=== PATIENT | female | born 1990 | race Caucasian/White ===

== ENCOUNTER 2020-11-23 06:00 | Inpatient (IN) | payer OTHER ==
[2020-11-23] MEDS ORDERED: LIDOCAINE 0.5% (PF) 5 MG/ML (50 ML SDV) SQ PRN (07:01)
[2020-11-23] MEDS ORDERED: OXYTOCIN 10 UNIT/ML 1 ML VIAL IM PRN (07:01)
[2020-11-23] MEDS ORDERED: METHYLERGONOVINE 0.2 MG/ML 1 ML AMP IM PRN (07:01)
[2020-11-23] MEDS ORDERED: CARBOPROST TROMETHAMINE 250 MCG/ML 1 ML AMP IM PRN (07:01)
[2020-11-23] MEDS ORDERED: TERBUTALINE 1 MG/ML VIAL SQ PRN (07:01)
[2020-11-23 07:08] LABS: Basophils % (A) 0 %; Eosinophils # (A) 0.2 k/uL (0-0.7); Eosinophils % (A) 2 %; HCT 38.7 % (34.0-46.0); HGB 12.8 gm/dL (11.4-16.0); Lymphocytes # (A) 2.4 k/uL (1.0-4.8); Lymphocytes % (A) 17 %; MCH 29.7 pg (25.0-35.0); MCV 90.1 fL (80.0-100.0); Mean Platelet Volume 8.1; Monocytes # (A) 0.6 k/uL (0-1.0); Monocytes % (A) 4 %; Neutrophils % (A) 75 %; Platelet Count 337 k/uL (150-450); RDW 13.8 % (11.5-15.5); WBC 14.7 k/uL (3.8-10.6)
[2020-11-23] MEDS ORDERED: OXYTOCIN 30 UNITS/500 ML NS 30 UNIT in SALINE 1 500ML.BAG IV SCH ×2 (07:15→12:45)
[2020-11-23 07:21] LABS: Glucose,Whole Blood 102 mg/dL (75-99)
[2020-11-23] MEDS: LACTATED RINGERS 1,000 ML IV SCH ×2 (07:30→08:59)
--- NOTE | 2020-11-23 09:22 | P.HPOB ---
History of Present Illness H&P Date: 11/23/20 Chief Complaint: 39-0/7 weeks, elective induction The patient is a 30-year-old 3 para 2 scissors or 2 admitted at 39-0/7 weeks as established by 6 week ultrasound. She is admitted for elective induction of labor with all signs reassuring and a favorable cervix. Her has been complicated by gestational diabetes with reassuring weekly testing. She was also found to have a single umbilical artery at her 20 week anatomic ultrasound and has had normal growth throughout the as well as reassuring testing as noted above. Group B strep status is negative. Obstetrical history: 3 para 2 scissors or 2 with 2 term vaginal deliveries without complications. Current statistics are listed in history present illness. EDC of 11/30/2020 was established by 6 week ultrasound. Laboratory workup demonstrates a blood type of A+ with a negative antibody screen. Rubella status is immune. Remainder of laboratory workup was within normal limits. One hour Glucola was elevated and followed by an abnormal three-hour glucose tolerance test making the diagnosis of gestational diabetes. Sugar control has been excellent with diet alone. Group B strep status is negative. Gynecologic history: Unremarkable with no history of any infections to include STDs. Review of Systems Review of systems is confined to history of present illness. Past Medical History Past Medical History: No Reported History Additional Past Medical History / Comment(s): C/O of abd. pain History of Any Multi-Drug Resistant Organisms: MRSA Date of last positivie culture/infection: January MDRO Source:: L wrist Past Surgical History: Adenoidectomy, Tonsillectomy Additional Past Surgical History / Comment(s): Colposcopy Past Anesthesia/Blood Transfusion Reactions: No Reported Reaction Past Psychological History: No Psychological Hx Reported Smoking Status: Former smoker Past Alcohol Use History: None Reported Past Drug Use History: None Reported - Past Family History Mother Family Medical History: No Reported History Father Family Medical History: CVA/TIA Additional Family Medical History / Comment(s): AAA. Medications and Allergies Home Medications Medication Instructions Recorded Confirmed Type Pnv No.95/Ferrous Fum/Folic AC 1 tab PO DAILY 11/23/20 11/23/20 History [ Multivitamin Tablet] Allergies Allergy/AdvReac Type Severity Reaction Status Date / Time No Known Allergies Allergy Verified 11/23/20 06:53 Exam Intake and Output 11/22/20 11/23/20 11/23/20 22:59 06:59 14:59 Other: Weight 83.915 kg In general, this is a well-developed, well-nourished white female in no acute distress. Her heart has a regular rhythm and rate without murmur. Her lungs clear to auscultation bilaterally in all samuel. Her abdomen is nondistended, has normal active bowel sounds, soft, nontender, and without any palpable masses aside from uterine fundus. Her extremities are without any cyanosis, clubbing, or significant edema and are nontender to palpation bilaterally. Digital cervical examination demonstrates her cervix to be 2-37 m dilated, 80% effaced, the vertex in presentation at -2 station. Artificial rupture of membranes is carried out demonstrating clear fluid. Results Result Diagrams: 11/23/20 06:59 Abnormal Lab Results - Last 24 Hours (Table) 11/23/20 11/23/20 Range/Units 06:59 07:20 WBC 14.7 H (3.8-10.6) k/uL Neutrophils # 11.0 H (1.3-7.7) k/uL POC Glucose (mg/dL) 102 H (75-99) mg/dL Assessment and Plan (1) Term Current Visit: Yes Status: Acute Code(s): Z34.90 - ENCNTR FOR SUPRVSN OF NORMAL , UNSP, UNSP TRIMESTER SNOMED Code(s): 69333650 Plan: The patient has been admitted for elective Pitocin induction. The risks and, occasions elective induction have been discussed and she has understood and agreed to proceed. She will have close maternal and surveillance and expectant management will be practiced. Artificial rupture of membranes has been carried out. She has requested an epidural catheter for analgesia which is being placed at this time.
[2020-11-23] MEDS ORDERED: ROPIVACAINE 100 MG, fentaNYL (PF) 200 MCG in SODIUM CHLORIDE 0.9% 76 ML EPIDURAL ONE (09:29)
[2020-11-23 09:34] LABS: Glucose,Whole Blood 101 mg/dL (75-99)
[2020-11-23] MEDS ORDERED: HYDROcodone/APAP 5-325MG 1 EACH TAB PO PRN (12:43)
[2020-11-23] MEDS ORDERED: HYDROCORTISONE 2.5% RECTAL CREAM 30 GM TUBE RECTAL PRN (12:43)
[2020-11-23] MEDS ORDERED: BENZOCAINE/MENTHOL SPRAY 1 GM/SPRAY AEROSOL TOPICAL PRN (12:43)
[2020-11-23] MEDS ORDERED: HYDROcodone/APAP 7.5-325MG 1 EACH TAB PO PRN (12:43)
[2020-11-23] MEDS ORDERED: LANOLIN CREAM 5 GM TUBE TOPICAL PRN (12:43)
[2020-11-23] MEDS ORDERED: IBUPROFEN 600 MG TAB PO PRN (12:43)
[2020-11-23] MEDS ORDERED: SIMETHICONE 80 MG CHEWABLE PO PRN (12:43)
[2020-11-23] MEDS ORDERED: diphenhydrAMINE 50 MG/ML 1 ML VIAL IVP PRN ×2 (12:43)
[2020-11-23] MEDS ORDERED: ACETAMINOPHEN TAB 325 MG TAB PO PRN (12:43)
[2020-11-23] MEDS ORDERED: diphenhydrAMINE 25 MG CAP PO PRN (12:43)
[2020-11-23] MEDS ORDERED: diphenhydrAMINE 50 MG CAP PO PRN (12:43)
[2020-11-23] MEDS ORDERED: ZOLPIDEM 5 MG TAB PO PRN (12:43)
--- NOTE | 2020-11-23 12:48 | P.PROBDLV ---
Vaginal Delivery Note - . Vaginal Delivery Note: The patient is a 30-year-old 3 para 2 scissors or 2 admitted at 39-0/7 weeks by good dating parameters. She is admitted for elective induction of labor with all signs reassuring. Her pregnancies been complicated by findings of a single umbilical artery as well as gestational diabetes. testing was reassuring throughout. growth has also been regular and symmetrical. On labor and delivery, she had Pitocin started followed by artificial rupture of membranes demonstrating clear fluid. She later had an epidural catheter placed for analgesia. She made rapid progress through the active phase of labor to complete and then pushed to a normal spontaneous vaginal delivery of a viable 6 lbs. 3 oz. baby girl with Apgars of 9 at 1 minute and 9 at 5 minutes. The placenta was delivered spontaneously, intact, and grossly normal with a very large accessory lobe of the placenta. The cord itself was noted she inserted relatively centrally on the main body of the placenta itself and the cord was also noted to be otherwise normal but with 2 vessels as previously noted by ultrasound. There was a small first-degree midline perineal laceration which was repaired with a single [id number] stitch of 3-0 chromic catgut. Estimated blood loss for the entire case was approximately 250 mL. There are no complications. All sponge, instrument, and needle counts were correct. Both mother and are resting comfortably in recovery.
[2020-11-23] MEDS: SENNOSIDES-DOCUSATE SODIUM 1 EACH TAB PO SCH (21:03)
[2020-11-24 06:06] LABS: Basophils # (A) 0.1 k/uL (0-0.2); Basophils % (A) 0 %; Eosinophils # (A) 0.3 k/uL (0-0.7); Eosinophils % (A) 2 %; HCT 34.8 % (34.0-46.0); HGB 11.8 gm/dL (11.4-16.0); Lymphocytes # (A) 3.5 k/uL (1.0-4.8); Lymphocytes % (A) 24 %; MCH 30.8 pg (25.0-35.0); MCHC 33.9 g/dL (31.0-37.0); MCV 90.7 fL (80.0-100.0); Mean Platelet Volume 7.8; Monocytes # (A) 0.7 k/uL (0-1.0); Monocytes % (A) 5 %; Neutrophils # (A) 9.8 k/uL (1.3-7.7); Neutrophils % (A) 67 %; Platelet Count 286 k/uL (150-450); RBC 3.84 m/uL (3.80-5.40); RDW 13.6 % (11.5-15.5); WBC 14.6 k/uL (3.8-10.6)
[2020-11-24 07:52] VITALS: BP 122/59; PULSE 71; RESP 14; TEMP 98.1
--- NOTE | 2020-11-24 08:40 | P.DS ---
Providers Date of admission: 11/23/20 06:32 Expected date of discharge: 11/24/20 Attending physician: Dale Garcia Primary care physician: Stated None - Discharge Diagnosis(es) (1) Term Current Visit: Yes Status: Acute (2) Normal spontaneous vaginal delivery Current Visit: Yes Status: Acute Hospital Course: The patient is a 30-year-old 3 para 202 admitted at 39-0/7 weeks by good dating parameters. She is admitted for elective induction of labor with all signs reassuring. On labor and delivery, she had Pitocin started followed by artificial rupture of membranes for clear fluid. She had an epidural catheter placed for analgesia and then made rapid progress to the active phase of labor to complete. She pushed to a normal spontaneous vaginal delivery of a viable 6 lbs. 5 oz. baby girl with Apgars of 9 at 1 minute and 9 at 5 minutes. Her course was unremarkable with vital signs remaining stable and her temperature was afebrile throughout. She was deemed stable for discharge on day #1 was discharged home to follow-up in the office in 6 weeks' time routinely. Discharge instructions included calling for any significantly increased bleeding or foul-smelling lochia, significantly increased fever or abdominal pain, perineal complaints, breast complaints, or anything else that concerned her. She was additionally instructed to have nothing in the vagina for at least 6 weeks time to include intercourse. She understood her instru ctions and agrees to follow up as noted above. Discharge medications included continued vitamins as well as [id number] analgesic pain medications. Maternal blood type is Rh+ and rubella status is immune. Procedures: #1. Pitocin induction #2. Artificial rupture of membranes #3. Epidural analgesia #4. Normal spontaneous vaginal delivery #5. Repair of perineal laceration Patient Condition at Discharge: Stable Plan - Discharge Summary New Discharge Prescriptions: No Action Pnv No.95/Ferrous Fum/Folic AC [ Multivitamin Tablet] 1 tab PO DAILY Discharge Medication List Pnv No.95/Ferrous Fum/Folic AC [ Multivitamin Tablet] 1 tab PO DAILY [History] Follow up Appointment(s)/Referral(s): Dale Garcia MD [STAFF PHYSICIAN] - 6 Weeks Discharge Disposition: HOME SELF-CARE
[2020-11-24] MEDS: SENNOSIDES-DOCUSATE SODIUM 1 EACH TAB PO SCH (08:58)
== END 2020-11-24 13:14 | disposition home or self-care (01) | DRG 807 ==
LOC: 4FBP 06:32
PROVIDERS: ADMIT Obstetrics & Gynecology; ATTEND Obstetrics & Gynecology
PROC: 10E0XZZ Delivery of Products of Conception, External Approach (ICD-10-PCS; principal; 2020-11-23)
PROC: 10907ZC Drainage of Amniotic Fluid, Therapeutic from Products of Conception, Via Natural or Artificial Opening (ICD-10-PCS; 2020-11-23)
PROC: 3E033VJ Introduction of Other Hormone into Peripheral Vein, Percutaneous Approach (ICD-10-PCS; 2020-11-23)
PROC: 3E0R3BZ Introduction of Anesthetic Agent into Spinal Canal, Percutaneous Approach (ICD-10-PCS; 2020-11-23)
PROC: 0HQ9XZZ Repair Perineum Skin, External Approach (ICD-10-PCS; 2020-11-23)
DX: O24.429 Gestational diabetes mellitus in childbirth, unspecified control (principal); Z37.0 Single live birth; O69.89X0 Labor and delivery complicated by other cord complications, not applicable or unspecified; O70.0 First degree perineal laceration during delivery; Z3A.39 39 weeks gestation of pregnancy; Z86.14 Personal history of Methicillin resistant Staphylococcus aureus infection; Z87.891 Personal history of nicotine dependence; Z82.3 Family history of stroke; Z82.49 Family history of ischemic heart disease and other diseases of the circulatory system; Z79.899 Other long term (current) drug therapy
CPT/HCPCS: 85025; 86850; 86900; 86901

== ENCOUNTER 2021-06-11 03:10 | Emergency (ER) | payer OTHER ==
[2021-06-11 03:15] VITALS: BP 92/62; PULSE 67; RESP 16; TEMP 98
[2021-06-11] MEDS ORDERED: AMOXIC-POT CLAV 875MG STARTER PACK 2 TAB BTL PO STA (03:24)
[2021-06-11] MEDS ORDERED: AMOXIC-POT CLAV 875-125MG 1 EACH TAB PO STA (03:24)
--- NOTE | 2021-06-11 03:25 | ED ---
Animal Bite HPI - General Chief Complaint: Animal Bite Stated Complaint: Cat bite RT hand Time Seen by Provider: 06/11/21 03:14 Source: patient, RN notes reviewed, old records reviewed Mode of arrival: ambulatory Limitations: no limitations - History of Present Illness Initial Comments: This is a 31-year-old female to the ER for evaluation patient presents for right hand bite Bite. Right fourth digit. Patient has no other injury noted no significant bleeding noted full range of motion noted. Injury happened just a few hours prior to arrival to the ER today. Otherwise she has no complaints MD Complaint: animal bite, other (Rocco cat bite) -: hour(s) Right: Hand (4th digit) Animal: cat Description: appeared well Mechanism: bite Pain Description: sharp Severity scale (1-10): 2 Context: playing with animal Associated Symptoms: erythema Treatments Prior to Arrival: other (none) - Related Data Home Medications Medication Instructions Recorded Confirmed Pnv No.95/Ferrous Fum/Folic AC 1 tab PO DAILY 11/23/20 11/23/20 [ Multivitamin Tablet] Previous Rx's Medication Instructions Recorded Amoxic-Pot Clav 875-125Mg 1 tab PO Q12HR #20 tablet 06/11/21 [Augmentin 875-125] Allergies Allergy/AdvReac Type Severity Reaction Status Date / Time No Known Allergies Allergy Verified 06/11/21 03:15 Review of Systems ROS Statement: Those systems with pertinent positive or pertinent negative responses have been documented in the HPI. ROS Other: All systems not noted in ROS Statement are negative. Past Medical History Past Medical History: No Reported History Additional Past Medical History / Comment(s): C/O of abd. pain History of Any Multi-Drug Resistant Organisms: MRSA Date of last positivie culture/infection: January MDRO Source:: L wrist Past Surgical History: Adenoidectomy, Cholecystectomy, Tonsillectomy Additional Past Surgical History / Comment(s): Colposcopy Past Anesthesia/Blood Transfusion Reactions: No Reported Reaction Past Psychological History: No Psychological Hx Reported Smoking Status: Current every day smoker Past Alcohol Use History: None Reported Past Drug Use History: None Reported - Past Family History Mother Family Medical History: No Reported History Father Family Medical History: CVA/TIA Additional Family Medical History / Comment(s): AAA. General Exam - General Exam Comments Initial Comments: Right fourth digit does have swelling and erythema Limitations: no limitations General appearance: alert, in no apparent distress Head exam: Present: atraumatic, normocephalic, normal inspection Eye exam: Present: normal appearance, PERRL, EOMI. Absent: scleral icterus, conjunctival injection, periorbital swelling ENT exam: Present: normal exam, mucous membranes moist Neck exam: Present: normal inspection. Absent: tenderness, meningismus, lymphadenopathy Respiratory exam: Present: normal lung sounds bilaterally. Absent: respiratory distress, wheezes, rales, rhonchi, stridor Cardiovascular Exam: Present: regular rate, normal rhythm, normal heart sounds. Absent: systolic murmur, diastolic murmur, rubs, gallop, clicks GI/Abdominal exam: Present: soft, normal bowel sounds. Absent: distended, tenderness, guarding, rebound, rigid Extremities exam: Present: normal inspection, full ROM, normal capillary refill. Absent: tenderness, pedal edema, joint swelling, calf tenderness Back exam: Present: normal inspection Neurological exam: Present: alert, oriented X3, CN II-XII intact Psychiatric exam: Present: normal affect, normal mood Skin exam: Present: warm, dry, intact, normal color. Absent: rash Course Vital Signs 06/11/21 03:11 Temperature 98.0 F Pulse Rate 67 Respiratory 16 Rate Blood Pressure 92/62 O2 Sat by Pulse 97 Oximetry - Reevaluation(s) Reevaluation #1: 06/11/21 03:28 Medical record is reviewed Reevaluation #2: 06/11/21 03:28 Patient informed of low likelihood for rabies, patient does not want rabies vaccine Reevaluation #3: 06/11/21 03:29 Patient given antibiotics informed results and questions answered Medical Decision Making - Medical Decision Making 31 female to the ED c/o Bite. Patient does have some erythema will place on antibiotics and can be discharged home Disposition Clinical Impression: Cat bite Disposition: HOME SELF-CARE Condition: Good Instructions (If sedation given, give patient instructions): Animal Bite (ED) Prescriptions: Amoxic-Pot Clav 875-125Mg [Augmentin 875-125] 1 tab PO Q12HR #20 tablet Is patient prescribed a controlled substance at d/c from ED?: No Referrals: None,Stated [Primary Care Provider] - 1-2 days
== END 2021-06-11 03:54 | disposition home or self-care (01) ==
LOC: EC 03:10
DX: S61.451A Open bite of right hand, initial encounter (principal); F17.200 Nicotine dependence, unspecified, uncomplicated; W55.01XA Bitten by cat, initial encounter
CPT/HCPCS: 99283

== ENCOUNTER 2021-09-11 17:17 | Emergency (ER) | payer OTHER ==
[2021-09-11 18:13] VITALS: BP 116/74; PULSE 71; RESP 18; TEMP 98.2
[2021-09-11] MEDS ORDERED: DICLOXACILLIN 250 MG CAPSULE PO STA (19:44)
--- NOTE | 2021-09-11 19:46 | ED ---
General Adult HPI - General Chief complaint: Fever Stated complaint: breast infection Time Seen by Provider: 09/11/21 19:18 Source: patient Mode of arrival: ambulatory Limitations: no limitations - History of Present Illness Initial comments: 31-year-old female patient presents to the emergency department today for evaluation of right breast pain and redness. States she quit breast feeding 3 weeks ago and started to develop some redness 2 days ago. States the area is tender to touch. States she has had some milk drainage but no purulent drainage that she knows of. She has been having fevers but also tested positive for COVID-19 one week ago. Patient denies any recent rash, shortness of breath, chest pain, abdominal pain, nausea, vomiting, diarrhea, constipation, back pain, numbness, tingling, dizziness, weakness, hematuria, dysuria, urinary urgency, urinary frequency, headache, visual changes, or any other complaints. - Related Data Home Medications Medication Instructions Recorded Confirmed Pnv No.95/Ferrous Fum/Folic AC 1 tab PO DAILY 11/23/20 11/23/20 [ Multivitamin Tablet] Previous Rx's Medication Instructions Recorded Amoxic-Pot Clav 875-125Mg 1 tab PO Q12HR #20 tablet 06/11/21 [Augmentin 875-125] Dicloxacillin [Dynapen] 500 mg PO Q6H #40 capsule 09/11/21 Allergies Allergy/AdvReac Type Severity Reaction Status Date / Time No Known Allergies Allergy Verified 09/11/21 18:14 Review of Systems ROS Statement: Those systems with pertinent positive or pertinent negative responses have been documented in the HPI. ROS Other: All systems not noted in ROS Statement are negative. Past Medical History Past Medical History: No Reported History Additional Past Medical History / Comment(s): C/O of abd. pain History of Any Multi-Drug Resistant Organisms: MRSA Date of last positivie culture/infection: January MDRO Source:: L wrist Past Surgical History: Adenoidectomy, Cholecystectomy, Tonsillectomy Additional Past Surgical History / Comment(s): Colposcopy Past Anesthesia/Blood Transfusion Reactions: No Reported Reaction Past Psychological History: No Psychological Hx Reported Smoking Status: Current every day smoker Past Alcohol Use History: None Reported Past Drug Use History: None Reported - Past Family History Mother Family Medical History: No Reported History Father Family Medical History: CVA/TIA Additional Family Medical History / Comment(s): AAA. General Exam Limitations: no limitations General appearance: alert, in no apparent distress, other (This is a well- developed, well-nourished adult female patient in no acute distress.) Respiratory exam: Present: normal lung sounds bilaterally. Absent: respiratory distress, wheezes, rales, rhonchi, stridor Cardiovascular Exam: Present: regular rate, normal rhythm, normal heart sounds. Absent: systolic murmur, diastolic murmur, rubs, gallop, clicks GI/Abdominal exam: Present: soft, normal bowel sounds. Absent: distended, tenderness, guarding, rebound, rigid Neurological exam: Present: alert, oriented X3, CN II-XII intact Psychiatric exam: Present: normal affect, normal mood Skin exam: Present: warm, dry, intact, normal color. Absent: rash Expanded 1 - Patch of erythema, soft tissue swelling, tenderness over the right lateral breast at 9:00. No fluctuance or evidence for abscess. No nipple drainage at this time. Course Vital Signs 09/11/21 18:10 Temperature 98.2 F Pulse Rate 71 Respiratory 18 Rate Blood Pressure 116/74 O2 Sat by Pulse 98 Oximetry Medical Decision Making - Medical Decision Making 31-year-old female patient presents to the emergency department today for evaluation of right breast redness and swelling. Physical examination did reveal a patch of erythema with no fluctuance or evidence for abscess on the right lateral breast at 9:00. She is currently afebrile normal vital signs. She is given something for pain and will be started on dicloxacillin. She is instructed to apply warm compresses and to pump that side. She is instructed to follow-up with her primary care physician for recheck in 1-2 days. Return parameters were discussed in detail. She verbalizes understanding and agrees with this plan. My attending is Dr. Franklin. Disposition Clinical Impression: Mastitis, right, acute Disposition: HOME SELF-CARE Condition: Good Instructions (If sedation given, give patient instructions): Mastitis (ED) Additional Instructions: Apply warm compresses. Pump milk. Complete antibiotic in full. Follow up with the primary care physician for recheck in 1-2 days. Return for any new, worsening, or concerning symptoms. Prescriptions: Dicloxacillin [Dynapen] 500 mg PO Q6H #40 capsule Is patient prescribed a controlled substance at d/c from ED?: No Referrals: None,Stated [Primary Care Provider] - 1-2 days Time of Disposition: 19:46
[2021-09-11] MEDS ORDERED: CEPHALEXIN 500MG STARTER PACK 4 CAP BTL PO STA (21:10)
== END 2021-09-11 21:20 | disposition home or self-care (01) ==
LOC: EC 17:17
DX: N61.0 Mastitis without abscess (principal); R50.9 Fever, unspecified; F17.200 Nicotine dependence, unspecified, uncomplicated; Z86.16 Personal history of COVID-19
CPT/HCPCS: 99283

== ENCOUNTER 2023-04-02 02:09 | Emergency (ER) | payer OTHER ==
[2023-04-02 02:27] VITALS: BP 115/72; PULSE 75; RESP 18; TEMP 97.9
[2023-04-02] MEDS ORDERED: CEPHALEXIN 500 MG CAP PO STA (02:38)
[2023-04-02] MEDS ORDERED: HYDROcodone/APAP 5-325MG 1 EACH TAB PO STA (02:38)
--- NOTE | 2023-04-02 02:54 | ED ---
Extremity Problem HPI - General Chief complaint: Extremity Problem,Nontraumatic Stated complaint: Right middle finger pain Time Seen by Provider: 04/02/23 02:32 Source: patient, RN notes reviewed Mode of arrival: ambulatory Limitations: no limitations - History of Present Illness Initial comments: This is a 32-year-old female who presents to the emergency department for pain to the right middle finger. States that this started 2 days ago. 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 States that she wonders if this may be related to a hangnail. Describes the pain as a throbbing sensation. She is taking ibuprofen with no relief in symptoms. Denies any fevers, chills, sore throat, cough, dyspnea, chest pain, palpitations, abdominal pain, nausea, vomiting, diarrhea, back pain, or headaches. MD Complaint: other (right middle finger pain) - Related Data Home Medications Medication Instructions Recorded Confirmed Pnv No.95/Ferrous Fum/Folic AC 1 tab PO DAILY 11/23/20 11/23/20 [ Multivitamin Tablet] Previous Rx's Medication Instructions Recorded Amoxic-Pot Clav 875-125Mg 1 tab PO Q12HR #20 tablet 06/11/21 [Augmentin 875-125] Cephalexin [Keflex] 500 mg PO Q6H #40 cap 09/11/21 Ketorolac [Toradol] 10 mg PO Q6HR PRN #12 tab 04/02/23 Allergies Allergy/AdvReac Type Severity Reaction Status Date / Time No Known Allergies Allergy Verified 04/02/23 02:25 Review of Systems ROS Statement: Those systems with pertinent positive or pertinent negative responses have been documented in the HPI. ROS Other: All systems not noted in ROS Statement are negative. Past Medical History Past Medical History: No Reported History Additional Past Medical History / Comment(s): C/O of abd. pain History of Any Multi-Drug Resistant Organisms: MRSA Date of last positivie culture/infection: January MDRO Source:: L wrist Past Surgical History: Adenoidectomy, Cholecystectomy, Tonsillectomy Additional Past Surgical History / Comment(s): Colposcopy Past Anesthesia/Blood Transfusion Reactions: No Reported Reaction Past Psychological History: No Psychological Hx Reported Smoking Status: Vaper Past Alcohol Use History: None Reported Past Drug Use History: None Reported - Past Family History Mother Family Medical History: No Reported History Father Family Medical History: CVA/TIA Additional Family Medical History / Comment(s): AAA. General Exam Limitations: no limitations General appearance: alert, in no apparent distress Head exam: Present: atraumatic, normocephalic, normal inspection Respiratory exam: Present: normal lung sounds bilaterally. Absent: respiratory distress, wheezes, rales, rhonchi, stridor Cardiovascular Exam: Present: regular rate, normal rhythm, normal heart sounds. Absent: systolic murmur, diastolic murmur, rubs, gallop, clicks Extremities exam: Present: other (Minor erythema and tenderness to the distal aspect of the right middle finger.) Neurological exam: Present: alert, oriented X3, CN II-XII intact Psychiatric exam: Present: normal affect, normal mood Course Vital Signs 04/02/23 02:25 Temperature 97.9 F Pulse Rate 75 Respiratory 18 Rate Blood Pressure 115/72 O2 Sat by Pulse 98 Oximetry Medical Decision Making - Medical Decision Making This is a 32-year-old female who presents to the emergency department for right middle finger pain. Was pt. sent in by a medical professional or institution? @ -No Did you speak to anyone other than the patient for history? @ -No Did you review nursing and triage notes? @ -Yes, and I agree, it is accurate with regards to the patient's symptoms. Were old charts reviewed? @ -No Differential Diagnosis? @ -Differential Finger Pain: Fracture, dislocation, contusion, cellulitis, felon, subungual hematoma, sprain, this is not meant to be an all-inclusive list. EKG interpreted by me (3pts min.)? @ -Not obtained X-rays interpreted by me (1pt min.)? @ -XR of the right middle finger obtained. My interpretation identifies no acute fractures. CT interpreted by me (1pt min.)? @ -Not obtained U/S interpreted by me (1pt. min.)? @ -Not obtained What testing was considered but not performed? (CT, X-rays, U/S, labs)? Why? @ -None What meds were considered but not given? Why? @ -None Did you discuss the management of the patient with other professionals? @ -No Did you reconcile home meds? @ -No Was smoking cessation discussed for >3mins.? @ -No Was critical care preformed (if so, how long)? @ -No Were there social determinants of health that impacted care today? How? (Homelessness, low income, unemployed, alcoholism, drug addiction, transportation, low edu. Level, literacy, decrease access to med. care, usp, rehab)? @ -No Was there de-escalation of care discussed even if they declined? (Discuss DNR or withdrawal of care, Hospice)? @ -No What co-morbidities impacted this encounter? (DM, HTN, Smoking, COPD, CAD, C ancer, CVA, Hep., AIDS, mental health diagnosis, sleep apnea, morbid obesity)? @ -None Was patient admitted / discharged? @ -Discharged. Physical exam does reveal some erythema and tenderness to the distal aspect of the middle finger with questionable paronychia. She does a lot of repetitive motion with her hands at work, which may also be the cause of her symptoms. X-ray obtained revealing no acute findings. Pain controlled in the emergency department and she was found to be sleeping comfortably with her significant other on reevaluation. Prescription for Toradol provided with dosing instructions reviewed. Patient is instructed to take the Toradol with Tylenol if needed and avoid any other [id number] anti-inflammatories such as ibuprofen with the Toradol. She is also advised to use warm compresses. and otherwise continue with supportive care. Undiagnosed new problem with uncertain prognosis? @ -None Drug Therapy requiring intensive monitoring for toxicity (Heparin, Nitro, Insulin, Cardizem)? @ -None Were any procedures done? @ -None Diagnosis/symptom? @ -Right middle finger pain Acute, or Chronic, or Acute on Chronic? @ -Acute Uncomplicated (without systemic symptoms) or Complicated (systemic symptoms)? @ -Uncomplicated Side effects of treatment? @ -None Exacerbation, Progression, or Severe Exacerbation] @ -Not applicable Poses a threat to life or bodily function? @ -No Return precautions reviewed in depth, the patient is instructed to return to the emergency department with any new, worsening, or concerning symptoms. Patient verbalized understanding. This case was discussed in detail with the attending ED physician, Dr. Beauchamp. Presentation, findings, and treatment plan discussed in detail as well. - Radiology Data Radiology results: report reviewed, image reviewed Disposition Clinical Impression: Pain of right middle finger Disposition: HOME SELF-CARE Instructions (If sedation given, give patient instructions): [facility] (ED) Additional Instructions: Return to the emergency department with any new, worsening, or concerning symptoms. Take the Toradol and Tylenol as needed for pain relief. Do not take [id number] anti-inflammatories such as ibuprofen if you choose to take the Toradol. Apply warm compresses. Follow up with your primary care provider in 1-2 days. Prescriptions: Ketorolac [Toradol] 10 mg PO Q6HR PRN #12 tab PRN Reason: Pain Is patient prescribed a controlled substance at d/c from ED?: No Referrals: Nonstaff,Physician [REFERRING] - 1-2 days
[2023-04-02] MEDS ORDERED: ACET/COD 300 MG/30 MG STARTER PACK 6 TAB BTL PO STA (03:33)
[2023-04-02] MEDS ORDERED: CEPHALEXIN 500MG STARTER PACK 4 CAP BTL PO STA (03:33)
[2023-04-02] MEDS ORDERED: IBUPROFEN 600 MG STARTER PACK 4 TAB BTL PO STA (03:33)
--- NOTE | 2023-04-02 05:59 | XR ---
EXAM: XR Right Fingers, [employer] CLINICAL HISTORY: Right middle finger pain TECHNIQUE: Frontal, lateral and oblique views of the third digit of the right hand. COMPARISON: No relevant prior studies available. FINDINGS: Bones/joints: Unremarkable. No acute fracture. No dislocation. Soft tissues: Unremarkable. No radiopaque foreign body. IMPRESSION: No acute abnormality.
== END 2023-04-02 03:47 | disposition home or self-care (01) ==
LOC: EC 02:09
DX: M79.644 Pain in right finger(s) (principal); F17.290 Nicotine dependence, other tobacco product, uncomplicated
CPT/HCPCS: 99283